=== PATIENT | female | born 1985 | race Caucasian/White ===

== ENCOUNTER 2016-07-02 14:45 | Emergency (ER) | payer OTHER ==
[2016-07-02 15:13] LABS: SPECIFIC GRAVITY 1.015 (1.001-1.030); URINE BILIRUBIN NEGATIVE (NEGATIVE); URINE BLOOD NEGATIVE (NEGATIVE); URINE GLUCOSE (UA) NEGATIVE (NEGATIVE); URINE LEUKOCYTE ESTERASE NEGATIVE (NEGATIVE); URINE NITRITE NEGATIVE (NEGATIVE); URINE PROTEIN NEGATIVE (NEGATIVE); URINE UROBILINOGEN NORMAL (0-1 mg/dl)
[2016-07-02 15:17] LABS: HCG,QUALITATIVE URINE NEGATIVE
[2016-07-02 15:18] LABS: URINE APPEARANCE CLEAR; URINE COLOR YELLOW
[2016-07-02] MEDS ORDERED: MORPHINE SULFATE 4 MG/ML SYRINGE ONE (16:03)
[2016-07-02] MEDS ORDERED: LACTATED RINGERS 1,000 ML ONE (16:03)
[2016-07-02] MEDS ORDERED: PROCHLORPERAZINE 5 MG/ML 2 ML VIAL ONE (16:03)
[2016-07-02 16:30] LABS: ABSOLUTE NEUTROPHIL COUNT 7.2 K/mm3 (1.8-7.7); BASO # 0.1 K/mm3 (0.0-0.2); BASO % 0.6 % (0.2-1.0); EOS # 0.1 (0.0-0.5); EOS % 0.6 % (0.9-2.9); HEMATOCRIT 37.2 % (37.0-47.0); HEMOGLOBIN 12.1 gm/l (12.0-16.0); IMM NEUT% 0.3 % (0-1); LYMPH # 3.6 (1.0-4.8); LYMPH % 31.1 % (15-45); MEAN CELL VOLUME 89.6 fl (81.0-99.0); MEAN CORPUSCULAR HEMOGLOBIN 29.2 pg (27.0-31.0); MEAN CORPUSCULAR HGB CONC 32.5 g/dl (33.0-37.0); MEAN PLATELET VOLUME 8.8 fl (7.4-10.4); MONO # 0.6 (0.0-0.8); MONO % 5.1 % (4-12); NEUT % 62.3 % (43-75); PLATELET COUNT 438 K/mm3 (130-400); RED CELL DISTRIBUTION WIDTH 12.3 % (11.5-14.5)
[2016-07-02 16:41] LABS: ALB/GLOB RATIO 1.4 (>1.0); CALCIUM 9.3 mg/dL (8.6-10.3)
--- NOTE | 2016-07-02 17:21 | US ---
Name: BARBER BAZZI Exam: Pelvic ultrasound Comparison: None Clinical history: Right lower quadrant pain. History of polycystic ovarian syndrome Findings: Transabdominal and endovaginal imaging of the pelvis was performed. Visualized bladder is normal. Uterus is normal size at 8.1 x 4.9 x 3.6 cm. Uterine echotexture is heterogeneous. The endometrium is 11 mm thick and heterogeneous. There is no intrauterine fluid collection or suspicious free fluid. Right ovary measures 3.4 x 2.8 x 2.6 cm with a volume of 12.8 cc. There is blood flow in the right ovary. The left ovary is not identified. There is a 2.0 x 2.0 x 1.9 cm simple right ovary and cyst. There was no pain with evaluation of the left adnexa. Impression: 1. 2 cm simple right ovarian cyst 2. Nonvisualization of the left ovary 3. Heterogeneous normal thickness endometrium 4. No free fluid Note: The above report was uploaded to [facility]'s electronic medical records system at 1716 hours.
[2016-07-04 15:37] LABS: CHLAMYDIA BD Negative (Negative); N.GONORRHOEAE BD Negative (Negative); SOURCE Urine (())
== END 2016-07-02 18:05 | disposition home or self-care (01) ==
LOC: ED 14:45
DX: R10.31 Right lower quadrant pain (principal); E66.9 Obesity, unspecified; Z79.899 Other long term (current) drug therapy
CPT/HCPCS: 83690; 87491; 87591; 81025; 85025; 87070; 80053; 81003; 87210; 76856; 76830; 96375; 99284 ×2; 96374; J0780; J2270; J7120

== ENCOUNTER 2016-07-04 17:51 | Emergency (ER) | payer OTHER ==
[2016-07-04] MEDS ORDERED: IOPAMIDOL 370 (76%) 100 ML VIAL IV ONE (17:52)
[2016-07-04] MEDS ORDERED: LACTATED RINGERS 1,000 ML ONE (18:40)
[2016-07-04] MEDS ORDERED: MORPHINE SULFATE 4 MG/ML SYRINGE ONE (18:40)
[2016-07-04] MEDS ORDERED: PROCHLORPERAZINE 5 MG/ML 2 ML VIAL ONE (18:40)
[2016-07-04 19:01] LABS: URINE BILIRUBIN NEGATIVE (NEGATIVE); URINE BLOOD NEGATIVE (NEGATIVE); URINE GLUCOSE (UA) NEGATIVE (NEGATIVE); URINE LEUKOCYTE ESTERASE NEGATIVE (NEGATIVE); URINE NITRITE NEGATIVE (NEGATIVE); URINE PROTEIN NEGATIVE (NEGATIVE); URINE UROBILINOGEN NORMAL (0-1 mg/dl)
[2016-07-04 19:03] LABS: URINE APPEARANCE CLEAR; URINE COLOR YELLOW
[2016-07-04 19:04] LABS: HCG,QUALITATIVE URINE NEGATIVE
[2016-07-04 19:28] LABS: ABSOLUTE NEUTROPHIL COUNT 7.2 K/mm3 (1.8-7.7); BASO % 0.1 % (0.2-1.0); EOS % 0.1 % (0.9-2.9); HEMATOCRIT 36.5 % (37.0-47.0); IMM NEUT% 0.2 % (0-1); LYMPH # 1.3 (1.0-4.8); LYMPH % 14.2 % (15-45); MEAN CORPUSCULAR HEMOGLOBIN 29.3 pg (27.0-31.0); MEAN CORPUSCULAR HGB CONC 32.9 g/dl (33.0-37.0); MEAN PLATELET VOLUME 8.8 fl (7.4-10.4); MONO # 0.5 (0.0-0.8); MONO % 5.1 % (4-12); NEUT % 80.3 % (43-75); PLATELET COUNT 366 K/mm3 (130-400); RED CELL DISTRIBUTION WIDTH 12.6 % (11.5-14.5)
[2016-07-04 19:47] LABS: ALB/GLOB RATIO 1.4 (>1.0); CALCIUM 9.1 mg/dL (8.6-10.3)
--- NOTE | 2016-07-04 19:52 | CT ---
Exam Type: ABD/PELVIS W/ CON Date and Time: 07/04/2016 6:35 PM Clinical information: Right lower quadrant pain with history of appendectomy and cholecystectomy. Comparison: None Procedure: Imaging device: [employer] Aqu[employer] [address] scanner 1 mm axial images were obtained through the abdomen and pelvis. Stacked reconstructed 3, 4 and 5 mm images were photographed in the axial coronal and sagittal planes. No oral contrast was utilized for this examination. 100 ml of Isovue-370 was injected intravenously. Exam: with intravenous contrast. FINDINGS: Lung bases: Bibasilar dependent atelectatic changes are present. There is no effusion or gross consolidation visualized. Liver: The liver appears to be of diffusely decreased attenuation when compared to the spleen. Spleen: The spleen is homogeneous and does not appear to be enlarged. Gallbladder: Surgically absent. Pancreas: Normal without enlargement or evidence of adjacent inflammatory changes. Adrenal glands: Normal without enlargement or evidence of adjacent inflammatory changes. Abdominal aorta: The aorta is of normal caliber and appears to be without significant atherosclerotic disease. Kidneys: The kidneys appear to be symmetric in size with no perinephric inflammatory changes are identified. No current findings of hydronephrosis are seen. Bowel structures: The visualized bowel is of normal caliber without evidence of dilatation or obstruction. No free fluid or mesenteric inflammatory changes are identified. Appendix: Surgically absent. However, posterior to the cecum near the expected location of the resected appendix is a small fluid collection measuring 1.9 x 1.4 cm in size. This may reflect a postoperative seroma or possibly an enlarged lymph node. Bladder: The bladder is of normal contour. No wall thickening or significant distention is observed. Hernia: No abdominal wall or inguinal hernia is visualized on this examination. Adenopathy: A few mildly prominent central and right lower quadrant mesenteric lymph nodes are visualized. Osseous structures: No discrete osseous abnormalities are identified. Pelvic structures: No discrete pelvic abnormalities are visualized in this examination. IMPRESSION: 1. Surgical absence of the appendix. In the region of the prior postappendectomy surgical bed posterior to the cecum, there is a low-attenuation structure measuring 1.9 x 1.4 cm in size. This may reflect a post surgical seroma at the site of appendectomy or possibly an enlarged lymph node. 2. Mildly prominent central and right lower quadrant mesenteric adenopathy. 3. Findings most commonly associated with mild diffuse fatty infiltration of the liver. 4. Prior cholecystectomy.
[2016-07-04] MEDS ORDERED: ONDANSETRON 4 MG ODT TAB ONE (23:04)
[2016-07-04] MEDS ORDERED: HYDROCODONE/ACETAMINOPHEN 5/325MG TABLET ONE (23:05)
--- NOTE | 2016-07-05 08:16 | US ---
RIGHT LOWER EXTREMITY VENOUS ULTRASOUND HISTORY: Right groin pain. Sonography of the right lower extremity was performed, with a focus on the venous structures. FINDINGS: COMMON FEMORAL VEIN: Patent and compressible. SUPERFICIAL FEMORAL VEIN: Patent and compressible. POPLITEAL VEIN: Patent and compressible. PROXIMAL CALF VEINS: Patent and compressible. RESPIRATORY AUGMENTATION OF FLOW: Present. ABNORMAL FLUID COLLECTIONS: None identified. IMPRESSION: No sonographic evidence of right lower extremity deep venous thrombosis. Preliminary report relayed to the Emergency Medicine medical service by Dr. Mario on 07/04/2016 at 2300 hours.
== END 2016-07-04 23:19 | disposition home or self-care (01) ==
LOC: ED 17:51
DX: R10.9 Unspecified abdominal pain (principal); R11.2 Nausea with vomiting, unspecified
CPT/HCPCS: 83605; 85379; 81025; 85025; 80053; 81003; 74177; 96375; 99284 ×2; 96374; 93971; J0780; J2270; J7120; A9270 ×2; Q9967